=== PATIENT | male | born 1950 | race Caucasian/White ===

== ENCOUNTER 2017-10-07 10:24 | Emergency (ER) | payer MEDICARE, BC ==
[~2017-10-07] VITALS: Ht 185.4 cm; Wt 74.8 kg
== END 2017-10-07 11:34 | disposition home or self-care (01) ==
LOC: ED 10:24
PROC: 0HQGXZZ Repair Left Hand Skin, External Approach (ICD-10-PCS; principal; 2017-10-07)
DX: S61.412A Laceration without foreign body of left hand, initial encounter (principal); Z87.891 Personal history of nicotine dependence; Z23 Encounter for immunization; W26.0XXA Contact with knife, initial encounter
CPT/HCPCS: 12001; 90471; 90715; 99282

== ENCOUNTER 2017-12-01 09:55 | Day surgery (SDC) | payer MEDICARE, BC ==
[~2017-12-01] VITALS: Ht 185.4 cm; Wt 74.8 kg
--- NOTE | ~2017-12-01 | OR ---
[facility] [address], [place] [address] Draft DATE OF OPERATION: 12/01/2017 SURGEON: Zuleyka Elam MD PREOPERATIVE DIAGNOSIS: Sore throat. POSTOPERATIVE DIAGNOSIS: Sore throat. PROCEDURE: Direct laryngoscopy, biopsy, direct esophagoscopy. ANESTHESIA: General orotracheal. Edwardo ANTHONY. PREOPERATIVE HISTORY: Mr. Mack is a 67-year-old man with a several month history of sore throat, left-sided, feels as though it is the back of his tongue, pointing to the left jugulodigastric area. Exam in the office including fiberoptic laryngoscopy has been negative. He is being taken to the operating room at this time for the above-mentioned procedures. OPERATIVE PROCEDURE AND FINDINGS: After informed consent, the patient was taken to the operating room, placed in supine position where general orotracheal anesthesia was induced. The patient and procedure were verified. The patient was repositioned. Digital palpation of the pharynx, base of tongue was negative. No masses. The anterior commissure laryngoscope was used to visualize the hypopharynx and larynx. 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 The cervical esophagoscope was then passed down to the cervical esophagus with no abnormality seen. No biopsies taken. The vallecula was reinspected with laryngoscope. No further bleeding identified. The pharynx was suctioned clear of blood secretions. Scopes were removed and the patient was awakened, extubated, transported to recovery room in good condition. PATIENT NAME: DRAGAN MACK OPERATIVE REPORT DATE OF : 50 REPORT #: [id number] PHYSICIAN: ZULEYKA ELAM MD PCP: NO PRIMARY CARE PHYSICIAN REPORT IS CONFIDENTIAL AND NOT TO BE RELEASED WITHOUT AUTHORIZATION [address] [place] [address] Draft COMPLICATIONS: No complications. BLOOD LOSS: Minimal. SPECIMENS: Specimen to pathology. DRAINS: No drains. Zuleyka Elam MD GC/MODL /[id number] Copies: ~ PATIENT NAME: DRAGAN MACK OPERATIVE REPORT DATE OF : 50 REPORT #: [id number] PHYSICIAN: ZULEYKA ELAM MD PCP: NO PRIMARY CARE PHYSICIAN REPORT IS CONFIDENTIAL AND NOT TO BE RELEASED WITHOUT AUTHORIZATION
== END 2017-12-01 13:45 | disposition home or self-care (01) ==
LOC: DS 09:55 → OPS 09:55
PROVIDERS: Otolaryngology
PROC: 0DJ08ZZ Inspection of Upper Intestinal Tract, Via Natural or Artificial Opening Endoscopic (ICD-10-PCS; 2017-12-01)
PROC: 0CBR8ZX Excision of Epiglottis, Via Natural or Artificial Opening Endoscopic, Diagnostic (ICD-10-PCS; principal; 2017-12-01 11:30)
PROC: 0CBS8ZX Excision of Larynx, Via Natural or Artificial Opening Endoscopic, Diagnostic (ICD-10-PCS; 2017-12-01 11:30)
DX: J38.7 Other diseases of larynx (principal); J39.2 Other diseases of pharynx; J02.9 Acute pharyngitis, unspecified; Z87.891 Personal history of nicotine dependence; Z85.828 Personal history of other malignant neoplasm of skin
CPT/HCPCS: J0330; J1100; J1885; J2250; J2405; J2704; J2765; J3010; J7120